=== PATIENT | male | born 1950 | race Hispanic/Latino ===

== ENCOUNTER → 2018-11-14 | Outpatient (CLI) | payer MEDICARE | LOC: GMAL 17:47 | PROVIDERS: ATTEND Family Medicine | DX: D51.3 Other dietary vitamin B12 deficiency anemia (principal); R53.83 Other fatigue ==

== ENCOUNTER → 2018-11-15 | Outpatient (CLI) | payer MEDICARE ==
--- NOTE | 2018-11-16 11:57 | US ---
EXAM DESCRIPTION: Extremity,Lower Arjun Arteries: Ultrasound. CLINICAL HISTORY: PERIPHERAL VASCULAR DISEASE COMPARISON: None. TECHNIQUE: Doppler evaluation of the bilateral lower extremity arterial flow waveforms and velocities. FINDINGS: Arterial waveforms in the right lower extremity are triphasic or biphasic from the right common femoral artery through the right peroneal artery. Monophasic in the right posterior tibial artery with no flow in the right dorsalis pedis artery.. Arterial waveforms in the left lower extremity are triphasic in the left common femoral artery. Monophasic with decreasing velocity from the left femoral artery through the left posterior tibial artery, especially the left peroneal artery. No flow in the left dorsalis pedis artery.. Comments: Probable atherosclerotic occlusion in the bilateral anterior tibial arteries and also significant narrowing in the left femoral artery. IMPRESSION: No flow in the bilateral dorsalis pedis arteries indicates significant atherosclerotic narrowing or occlusion in the bilateral anterior tibial arteries with decreased flow in the bilateral peroneal/posterior tibial vessels, more left than right. Consider CTA of the abdominal aorta and bilateral lower extremity runoff. Electronically signed by: Scottie Kaur MD 11/16/2018 11:54 AM CDT
== END ==
LOC: US 13:57
PROVIDERS: ATTEND Family Medicine
DX: I73.9 Peripheral vascular disease, unspecified (principal)

== ENCOUNTER → 2019-08-21 | Outpatient (CLI) | payer MEDICARE | LOC: GMAL 16:47 | PROVIDERS: ATTEND Family Medicine | DX: Z12.5 Encounter for screening for malignant neoplasm of prostate (principal); R53.83 Other fatigue; D51.3 Other dietary vitamin B12 deficiency anemia; N39.498 Other specified urinary incontinence | CPT/HCPCS: 82607; 84443; G0103 ==

== ENCOUNTER → 2019-10-09 | Outpatient (CLI) | payer MEDICARE ==
--- NOTE | 2019-10-10 14:04 | CT ---
EXAM DESCRIPTION: Abdoment/Pelvis w/o Contrast: Computed Tomography. CLINICAL HISTORY: 68 years Male BENIGN ESSENTIAL MICROSCOPIC HEMATURIA COMPARISON: None. TECHNIQUE: Spiral-axial scans 2.5 x 2.5 mm intervals through the abdomen and pelvis without oral or IV contrast, prone position. Coronal and sagittal 2.0 mm reconstructions. Total Exam DLP: Less than 700 mGy-cm. This exam was performed according to our departmental CT dose-optimization program which includes automated exposure control, adjustment of the mA and/or kV according to patient size and/or use of iterative reconstruction technique; to reduce radiation dose to as low as reasonably achievable (ALARA). FINDINGS: Lung bases and pleura: No abnormalities in the lung bases. Coronary artery calcifications. Liver, stomach, spleen, and adrenal glands: Small spleen. Liver upper normal limits size. Stomach and other solid organs are negative. Pancreas, Gallbladder, and Ducts: Gallbladder visualized. No duct dilation. Pancreas negative. Kidneys and Ureters: Vascular calcifications bilateral kidneys. Vascular calcification versus stone in the inferior collecting system left kidney 3.5 mm greatest diameter. Bilateral ureters unremarkable. No perirenal fluid and no hydronephrosis bilaterally. Mesentery: Vague increase density in the midline mesentery from just below the pancreas to the level of the upper pelvis with multiple small lymph nodes present. The largest lymph node in the left mid abdomen at the level of the left renal hilum measures 1.7 x 0.7 cm on axial image . No free air or free fluid. Aorta: Moderate calcification with normal caliber of the outer wall and calcification of the ostia of most of the major branch vessels. At least 50% diameter stenosis of the origin of the SMA.. Small Bowel: Normal caliber. Terminal Ileum/Cecum: Normal caliber. Appendix not seen. No inflammatory changes. Colon: Minimal diverticula distal descending colon and sigmoid colon. Moderate redundancy of the sigmoid colon. No complications. Small lymph nodes abutting the iliac vessels. Pelvic Organs: Prostate gland with calcifications abutting the base of the urinary bladder. No radiodense stones in the bladder. No free fluid. Prostate gland transverse dimensions 4.9 x 3.6 cm, with calcifications. Borderline enlarged lymph nodes abutting the iliac vessels particularly around the iliac chains. Small nodes in the bilateral internal obturator regions.. Spine and Bony Pelvis: Spondylosis at multiple levels of the lumbar spine with lower lumbar dextroscoliosis and lower thoracic levoscoliosis. Significant bilateral foraminal narrowing L4-5 and L5-S1. Bilateral arthrosis SI joints and hip joints. Abdominal Wall/Back Soft Tissues: Bilateral large fatty inguinal hernias larger on the right. Not containing bowel. Bilateral inguinal lymph nodes. IMPRESSION: 1. Bilateral vascular calcifications in the kidneys with no hydronephrosis. Lower pole calcification left kidney vascular versus urinary tract, 3.5 mm diameter. Bilateral ureters and bladder are unremarkable. 2. Increased density in the mesentery in the midline abdomen from the pancreas to the level of the upper pelvis with mostly small nodes but several enlarged nodes. Also nodes associated with the bilateral iliac chains and inguinal and common femoral lymph node regions bilaterally. No small bowel enlargement or fatty stranding around the small bowel segments. Most likely mesenteric adenitis, but should also consider lymphoproliferative disorders, with clinical and laboratory correlation. No free air or free fluid. 3. Diverticulosis distal colon with no complications. 4. Multiple levels of lumbar and thoracic spondylosis. Electronically signed by: Scottie Kaur MD 10/10/2019 2:03 PM [facility]
== END ==
LOC: CT 08:07
PROVIDERS: ATTEND Family Medicine
DX: I70.1 Atherosclerosis of renal artery (principal); N28.9 Disorder of kidney and ureter, unspecified; N28.89 Other specified disorders of kidney and ureter; M47.816 Spondylosis without myelopathy or radiculopathy, lumbar region; M47.814 Spondylosis without myelopathy or radiculopathy, thoracic region; K57.30 Diverticulosis of large intestine without perforation or abscess without bleeding; R59.0 Localized enlarged lymph nodes

== ENCOUNTER → 2020-05-27 | Outpatient (CLI) | payer MEDICARE | LOC: GMAL 10:42 | PROVIDERS: ATTEND Family Medicine | DX: D51.3 Other dietary vitamin B12 deficiency anemia (principal); E55.9 Vitamin D deficiency, unspecified; I10 Essential (primary) hypertension; Z79.899 Other long term (current) drug therapy; Z12.5 Encounter for screening for malignant neoplasm of prostate ==

== ENCOUNTER → 2020-06-24 | Outpatient (CLI) | payer MEDICARE | LOC: GMAL 09:55 | PROVIDERS: ATTEND Family Medicine | DX: R41.9 Unspecified symptoms and signs involving cognitive functions and awareness (principal) ==

== ENCOUNTER → 2020-07-03 | Outpatient (CLI) | payer MEDICARE ==
--- NOTE | 2020-07-04 17:02 | MRI ---
EXAM DESCRIPTION: Brain w/o Contrast: MRI. CLINICAL HISTORY: UNSPECIF. Symptoms and signs involving cognitive functions and awareness COMPARISON: None. TECHNIQUE: Multiplanar, high-field MRI unit, multiple diffusion sequences, multiple conventional sequences without contrast. FINDINGS: Bilateral confluent hyperintense FLAIR and T2-weighted signal in the periventricular white matter of the frontoparietal occipital lobes in the simmons radiata above the basal ganglia and abutting the frontal occipital horns more inferiorly. Bilateral involvement of the centrum semiovale is symmetric. Also bilateral focal involvement of the subcortical white matter in the frontal occipital and parietal lobes. No significant involvement of the temporal lobes.. No hemorrhage, no cerebral edema, no midline shift.. No diffusion restriction. Multiple perivascular spaces, and prominent vascular channels, in the bilateral basal ganglia. No hemorrhage, no cerebral edema, no mass-effect. No diffusion restriction. Cyst versus small old infarct left basal ganglia. No hemorrhage, no cerebral edema, no mass effect. Normal signal in the brainstem and cerebellar hemispheres. Concordance of the diffusion and non-diffusion sequences with no diffusion restriction. Cortical sulci, ventricles, and other CSF spaces, and the subdural spaces are normally configured for the patient's age. No effacement or displacement. No midline shift. No extra-axial hemorrhage. Normal flow signal void in the major vessels of the poarch Evans, and the venous sinuses. IACs are symmetric bilaterally. Normal signal in the bilateral mastoid air cells. No mass effect in the bilateral cerebellopontine angles. Pituitary gland occupies most of the sella. Base of the cerebellar tonsils is at the level of the foramen magnum. Minimal mucoperiosteal thickening in the paranasal sinuses. The bony calvarium is intact. IMPRESSION: 1. Bilateral periventricular white matter disease more than bilateral subcortical white matter disease. Most likely related to aging or cerebral microvascular disease. Less likely related to acute ischemia, vasculitis, or demyelinating process. 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 2. Minimal chronic paranasal sinusitis. Electronically signed by: Scottie Kaur MD 07/04/2020 5:00 PM [facility]
== END ==
LOC: MRI 10:51
PROVIDERS: ATTEND Family Medicine
DX: R41.9 Unspecified symptoms and signs involving cognitive functions and awareness (principal); R90.82 White matter disease, unspecified; J32.9 Chronic sinusitis, unspecified; G93.9 Disorder of brain, unspecified

== ENCOUNTER → 2020-08-30 | Outpatient (CLI) | payer MEDICARE, OTHER | LOC: GMAL 10:38 | PROVIDERS: ATTEND Family Medicine | DX: Z12.5 Encounter for screening for malignant neoplasm of prostate (principal); I10 Essential (primary) hypertension ==

== ENCOUNTER → 2020-10-16 | Outpatient (CLI) | payer MEDICARE ==
--- NOTE | 2020-10-17 11:59 | US ---
EXAM DESCRIPTION: Carotid Duplex: ULTRASOUND. CLINICAL HISTORY: 69 years Male STENOSIS COMPARISON: MRI scan of brain June 2020. TECHNIQUE: Transcutaneous scanning utilizing farley-scale and Doppler modes to evaluate the bilateral carotid systems and vertebral arteries. Percentage of diameter of stenosis or no stenosis recorded will be based upon NASCET criteria. FINDINGS: Peak systolic/end diastolic velocities (CM-Sec) CCA Right 106/11 Left 103/11. ICA Right proximal 46/7, distal 109/17. Left proximal 67/11, Distal a 4/19. Vertebral Right 31/0 Left 48/5. ECA (PS Only) Right 116 left 120. ICA/CCA peak systolic velocity ratio: Right 1.0 Left 0.8 ICA/CCA end diastolic velocity ratio: Right 1.5 Left 1.7 Vertebral arteries: antegrade flow. Comments: Bilateral atherosclerotic calcifications in the common carotid bulb and proximal ICAs. 25% area and diameter stenosis mid right common carotid bulb. Less than 35% area and diameter stenosis in the left common carotid bulb and proximal ICA. IMPRESSION: 1. Doppler evaluation of the bilateral carotid systems and vertebral arteries shows no hemodynamically significant stenoses (less than 70%). 2. Mild to moderate amount of plaque in the carotid arteries bilaterally. Bilateral vertebral arteries showed antegrade-cephalad flow. Electronically signed by: Scottie Kaur MD 10/17/2020 11:58 AM [facility]
== END ==
LOC: US 08:54
PROVIDERS: ATTEND Family Medicine
DX: I65.23 Occlusion and stenosis of bilateral carotid arteries (principal)